=== PATIENT | female | born 1955 | race Caucasian/White ===

== ENCOUNTER 2018-07-06 10:42 | Emergency (ER) | payer SELFPAY ==
[~2018-07-06] VITALS: Ht 152.4 cm; Wt 36.4 kg
[~2018-07-06 10:42] MED LIST: ULTRAM50 M1 PO
[2018-07-06 10:50] VITALS: BP 169/95
[2018-07-06] MEDS ORDERED: MULTIVITAMIN1 SGL PO (10:54)
[2018-07-06] MEDS ORDERED: CALCIUM 600600 M2 PO (10:54)
[2018-07-06] MEDS ORDERED: MIRALAX17 GM PO (14:52)
[2018-07-06] MEDS ORDERED: NORCO 325 MG-51 TA1 PO (14:52)
[2018-07-06] MEDS ORDERED: ULTRA-LIGHT RO1 EACH MC (14:52)
== END 2018-07-06 15:05 | disposition home or self-care (01) ==
LOC: ED 10:42
DX: S72.115A Nondisplaced fracture of greater trochanter of left femur, initial encounter for closed fracture (principal); S51.812A Laceration without foreign body of left forearm, initial encounter; W10.8XXA Fall (on) (from) other stairs and steps, initial encounter; Y92.008 Other place in unspecified non-institutional (private) residence as the place of occurrence of the external cause; F17.200 Nicotine dependence, unspecified, uncomplicated; Z79.899 Other long term (current) drug therapy
CPT/HCPCS: J1885

== ENCOUNTER 2021-10-28 11:58 | Emergency (ER) | payer MEDICARE ==
[~2021-10-28 11:58] MED LIST changes: +CALCIUM 600600 M2 PO; +MIRALAX17 GM PO; +MULTIVITAMIN1 SGL PO; +NORCO 325 MG-51 TA1 PO; +ULTRA-LIGHT RO1 EACH MC
[2021-10-28 13:17] LABS: BASO # 0.02 K/mm3 (0.02-0.10); EOS # 0.03 K/mm3 (0.04-0.40); EOS % 0.4 % (1.0-5.0); HEMATOCRIT 41.5 % (37.0-47.0); HEMOGLOBIN 14.5 g/dL (12.5-16.0); MEAN CELL VOLUME 101 fl (78-100); MEAN CORPUSCULAR HEMOGLOBIN 35 pg (27-31); MEAN CORPUSCULAR HGB CONC 35 g/dL (33-37); MONO # 0.63 K/mm3 (0.20-0.80); NEU # 4.43 K/mm3 (1.40-6.50); PLATELET COUNT 313 K/mm3 (130-400); RED BLOOD COUNT 4.13 M/mm3 (4.10-5.30); RED CELL DISTRIBUTION WIDTH 12.6 % (11.5-14.5)
[2021-10-28 13:25] LABS: ALBUMIN 3.2 g/dL (3.4-4.8); POTASSIUM 3.9 mmol/L (3.5-5.1)
[2021-10-28 13:26] LABS: CALCIUM 8.6 mg/dL (8.3-10.5)
[2021-10-28 13:27] LABS: TOTAL PROTEIN 7.8 g/dL (6.2-8.1)
[2021-10-28 13:29] LABS: TOTAL BILIRUBIN 0.7 mg/dL (0.2-1.2)
[2021-10-28 18:40] VITALS: BP 142/86
== END 2021-10-28 18:13 | disposition other institution (70) ==
LOC: ED 11:58
PROVIDERS: Family Medicine
DX: J44.9 Chronic obstructive pulmonary disease, unspecified (principal); I50.9 Heart failure, unspecified; E87.1 Hypo-osmolality and hyponatremia; R79.89 Other specified abnormal findings of blood chemistry; F17.210 Nicotine dependence, cigarettes, uncomplicated; Z20.822 Contact with and (suspected) exposure to COVID-19
CPT/HCPCS: J1940

== ENCOUNTER 2021-10-28 17:35 | Inpatient (IN) | payer MEDICARE ==
[~2021-10-28] VITALS: Wt 38.6 kg
[2021-10-28 21:00] VITALS: BP 127/75
[2021-10-28 21:56] VITALS: BP 109/71
[2021-10-29] VITALS (8 sets, daily range): BP systolic 105–149; BP diastolic 71–79
[2021-10-29 00:02] LABS: PARTIAL THROMBOPLASTIN TIME 30.2 SECONDS (21.0-32.0); PROTHROMBIN TIME 10.9 SECONDS (9.0-12.0)
[2021-10-29 08:48] LABS: CALCIUM 8.3 mg/dL (8.3-10.5)
[2021-10-29 15:55] LABS: HEMATOCRIT 36.5 % (37.0-47.0); HEMOGLOBIN 12.9 g/dL (12.5-16.0); MEAN PLATELET VOLUME 9.2 fl (7.4-10.4); RED BLOOD COUNT 3.62 M/mm3 (4.10-5.30); WHITE BLOOD COUNT 8.2 K/mm3 (4.8-10.8)
[2021-10-29 16:10] LABS: POTASSIUM 4.1 mmol/L (3.5-5.1)
[2021-10-29 16:12] LABS: CALCIUM 8.2 mg/dL (8.3-10.5)
[2021-10-29 16:33] LABS: TROPONIN-I 3.31 ng/mL (<0.030)
[2021-10-30 01:41] VITALS: BP 132/84
[2021-10-30 05:49] VITALS: BP 138/82
[2021-10-30 07:09] LABS: HEMATOCRIT 34.9 % (37.0-47.0); HEMOGLOBIN 12.1 g/dL (12.5-16.0); RED BLOOD COUNT 3.45 M/mm3 (4.10-5.30); RED CELL DISTRIBUTION WIDTH 12.9 % (11.5-14.5); WHITE BLOOD COUNT 9.3 K/mm3 (4.8-10.8)
[2021-10-30 10:21] VITALS: BP 117/75
[2021-10-30 14:02] VITALS: BP 138/79
[2021-10-30 16:51] LABS: BASO # 0.01 K/mm3 (0.02-0.10); EOS # 0.02 K/mm3 (0.04-0.40); EOS % 0.2 % (1.0-5.0); HEMATOCRIT 32.9 % (37.0-47.0); HEMOGLOBIN 11.4 g/dL (12.5-16.0); LYMPH# 2.43 K/mm3 (1.50-4.00); MEAN CELL VOLUME 102 fl (78-100); MEAN CORPUSCULAR HEMOGLOBIN 35 pg (27-31); MEAN CORPUSCULAR HGB CONC 35 g/dL (33-37); MEAN PLATELET VOLUME 9.3 fl (7.4-10.4); MONO # 0.74 K/mm3 (0.20-0.80); NEU # 5.51 K/mm3 (1.40-6.50); PLATELET COUNT 273 K/mm3 (130-400); RED BLOOD COUNT 3.22 M/mm3 (4.10-5.30); WHITE BLOOD COUNT 8.7 K/mm3 (4.8-10.8)
[2021-10-30 16:59] LABS: ALBUMIN 2.8 g/dL (3.4-4.8); POTASSIUM 3.6 mmol/L (3.5-5.1)
[2021-10-30 17:00] LABS: CALCIUM 8.4 mg/dL (8.3-10.5)
[2021-10-30 17:01] LABS: TOTAL PROTEIN 6.3 g/dL (6.2-8.1)
[2021-10-30 17:03] LABS: TOTAL BILIRUBIN 0.7 mg/dL (0.2-1.2)
[2021-10-30 17:14] LABS: TROPONIN-I 1.4 ng/mL (<0.030)
[2021-10-30 18:17] VITALS: BP 138/87
[2021-10-30 21:48] VITALS: BP 114/74
[2021-10-31 02:05] VITALS: BP 135/78
[2021-10-31 05:55] VITALS: BP 124/78
[2021-10-31 07:59] LABS: BASO # 0.01 K/mm3 (0.02-0.10); EOS # 0.02 K/mm3 (0.04-0.40); EOS % 0.3 % (1.0-5.0); HEMATOCRIT 29.8 % (37.0-47.0); HEMOGLOBIN 10.4 g/dL (12.5-16.0); LYMPH# 1.93 K/mm3 (1.50-4.00); MEAN CELL VOLUME 101 fl (78-100); MEAN CORPUSCULAR HEMOGLOBIN 35 pg (27-31); MEAN CORPUSCULAR HGB CONC 35 g/dL (33-37); MEAN PLATELET VOLUME 9.3 fl (7.4-10.4); MONO # 0.51 K/mm3 (0.20-0.80); NEU # 5.16 K/mm3 (1.40-6.50); PLATELET COUNT 253 K/mm3 (130-400); RED BLOOD COUNT 2.95 M/mm3 (4.10-5.30); RED CELL DISTRIBUTION WIDTH 12.8 % (11.5-14.5); WHITE BLOOD COUNT 7.6 K/mm3 (4.8-10.8)
[2021-10-31 08:06] LABS: ALBUMIN 2.5 g/dL (3.4-4.8)
[2021-10-31 08:07] LABS: POTASSIUM 3.6 mmol/L (3.5-5.1)
[2021-10-31 08:08] LABS: CALCIUM 8.1 mg/dL (8.3-10.5)
[2021-10-31 08:09] LABS: TOTAL PROTEIN 5.7 g/dL (6.2-8.1)
[2021-10-31 08:11] LABS: TOTAL BILIRUBIN 0.8 mg/dL (0.2-1.2)
[2021-10-31 08:25] LABS: TROPONIN-I 0.98 ng/mL (<0.030)
[2021-10-31 09:47] VITALS: BP 134/71
== END 2021-10-31 09:45 | disposition short-term general hospital (02) | DRG 281 ==
LOC: MED/SURG 17:35
PROVIDERS: Nurse Practitioner; ADMIT Family Medicine
DX: I21.29 ST elevation (STEMI) myocardial infarction involving other sites (principal); E87.1 Hypo-osmolality and hyponatremia; K92.2 Gastrointestinal hemorrhage, unspecified; I50.9 Heart failure, unspecified; J44.9 Chronic obstructive pulmonary disease, unspecified; I48.91 Unspecified atrial fibrillation; G89.29 Other chronic pain; M54.50 Low back pain, unspecified; Z20.822 Contact with and (suspected) exposure to COVID-19; F17.210 Nicotine dependence, cigarettes, uncomplicated
CPT/HCPCS: C9113; J1644; J1650; J1940; J2060; Q9967

== ENCOUNTER 2021-11-16 12:40 | Emergency (ER) | payer MEDICARE ==
[2021-11-16] MEDS ORDERED: DIFLUCAN100 M1 PO (13:21)
[2021-11-16] MEDS ORDERED: BACTRIM DS TAB1 EACH PO (13:21)
[2021-11-16 13:44] VITALS: BP 102/64
== END 2021-11-16 13:30 | disposition home or self-care (01) ==
LOC: ED 12:40
DX: L03.317 Cellulitis of buttock (principal); L30.8 Other specified dermatitis; R19.7 Diarrhea, unspecified; I11.0 Hypertensive heart disease with heart failure; I50.9 Heart failure, unspecified; J44.9 Chronic obstructive pulmonary disease, unspecified; I25.10 Atherosclerotic heart disease of native coronary artery without angina pectoris
CPT/HCPCS: J0696